=== PATIENT | female | born 1960 | race Caucasian/White ===

== ENCOUNTER → 2016-11-30 17:05 | Outpatient (CLI) | payer OTHER ==
[2015-09-26 16:04] VITALS: BMI 30.7
[~2016-11-30 17:05] MED LIST: EFFEXOR XR150 MG PO; MIRALAX17 GM PO; PERCOCET 5-3251 TAB PO; PRINIVIL20 MG PO; XANAX1 MG PO; ZESTORETIC 20/21 TAB PO
== END | disposition home or self-care (01) ==
LOC: D.CT 16:30
DX: R06.02 Shortness of breath (principal); R79.1 Abnormal coagulation profile